=== PATIENT | female | born 1970 | race Two or more races ===

== ENCOUNTER → 2019-11-18 17:48 | Outpatient (CLI) | payer BC, SELFPAY ==
--- NOTE | ~2019-11-18 | MM_ITS ---
EXAMINATION: MM screening [facility] BI w kiah HISTORY: Screening TECHNIQUE: Craniocaudal and mediolateral oblique 3-D tomosynthesis images were obtained and synthetic 2-D images were generated. CAD analysis was submitted and interpreted. COMPARISON: Comparison to multiple prior studies sequentially, with oldest reviewed study dated 05/2018. BREAST PARENCHYMAL COMPOSITION: The breasts are heterogenously dense, which may obscure small masses. FINDINGS: There are benign bilateral skin calcifications. There is no evidence of suspicious mass, ca lcification, or architectural distortion to suggest malignancy in either breast. There has been no winn spicious interval change. IMPRESSION: 1. No mammographic evidence of malignancy. 2. Recommend routine screening mammography in one year. BI-RADS Category 2: Benign finding(s). Reviewed, dictated and finalized at location A.
== END ==
PROVIDERS: PCP Internal Medicine; Visit Provider Nurse Practitioner
DX: Z12.31 Encounter for screening mammogram for malignant neoplasm of breast (principal)
CPT/HCPCS: 77063; 77067

== ENCOUNTER → 2020-03-31 08:42 | Outpatient (CLI) | payer BC, SELFPAY ==
--- NOTE | ~2020-03-31 | MMUS_ITS ---
EXAMINATION: MM diagnostic maria guadalupe LT w kiah, US breast LT complete HISTORY: Follow-up left breast asymmetries TECHNIQUE: Additional 3-D tomosynthesis images of the left breast were performed and synthetic 2-D im ages were generated. CAD analysis was submitted and interpreted. High resolution left breast ultrasou nd was performed. COMPARISON: Comparison to multiple prior studies sequentially, with oldest reviewed study dated 08/28. BREAST PARENCHYMAL COMPOSITION: The breasts are heterogenously dense, which may obscure small masses. FINDINGS: MAMMOGRAPHIC FINDINGS: There are multiple small masses in the upper outer quadrant of the left breast, largest measuring 1.4 cm. There are no suspicious calcifications. There are benign skin calcifications. No architectural d istortion. ULTRASOUND: Left breast ultrasound: There multiple cysts of the left breast, largest at 1:00, 4 cm from the nippl e measuring 1.4 cm corresponding to the mass seen on mammography. At 4:00, 4 cm from the nipple, ther e is a spongiform 6 mm mass, likely a cluster of microcysts without significant posterior features or internal vascularity. IMPRESSION: 1. Probable benign cluster of microcysts of the left breast at 4:00, 4 cm from the nipple. Multiple a dditional simple cysts are identified corresponding to the mammographic findings. 2. Recommend 6 month follow-up diagnostic left mammogram and ultrasound BI-RADS category 3, probably benign findings. Reviewed, dictated and finalized at location A. CH SHOVEL OPERATOR IMPRESSION: 1. Probable benign cluster of microcysts of the left breast at 4:00, 4 cm from the nipple. Multiple additional simple cysts are identified corresponding to th e mammographic findings. 2. Recommend 6 month follow-up diagnostic left mammogram and ultrasound BI-RADS category 3, probably benign findings.
== END ==
PROVIDERS: Visit Provider Obstetrics & Gynecology Gynecology
DX: N64.4 Mastodynia (principal); N60.02 Solitary cyst of left breast; N63.23 Unspecified lump in the left breast, lower outer quadrant
CPT/HCPCS: 76641; 77061; 77065; G0279

== ENCOUNTER → 2020-09-21 16:44 | Outpatient (CLI) | payer BC, SELFPAY ==
--- NOTE | ~2020-09-21 | XR_ITS ---
EXAMINATION: XR chest 2V DATE: 09/21/2020 18:00 INDICATION: Cough TECHNIQUE: frontal and lateral views of the chest were obtained. COMPARISON: Chest radiograph dated 01/27/2018 FINDINGS: The lungs remain clear with no focal airspace opacities, pulmonary edema, pleural effusion or pneumot horax. The cardiomediastinal silhouette is normal. Visualized bones and soft tissues are unremarkable . IMPRESSION: 1. Normal chest radiograph. Reviewed, dictated and finalized at location A. IMPRESSION: 1. Normal chest radiograph.
== END ==
PROVIDERS: PCP Internal Medicine; Visit Provider Internal Medicine
DX: R05 Cough (principal)
CPT/HCPCS: 71046

== ENCOUNTER → 2021-05-10 15:12 | Outpatient (CLI) | payer BC, SELFPAY ==
--- NOTE | ~2021-05-10 | MM_ITS ---
EXAMINATION: MM screening [facility] BI w kiah HISTORY: Screening mammogram TECHNIQUE: Craniocaudal and mediolateral oblique 3-D tomosynthesis images were obtained and synthetic 2-D images were generated. CAD analysis was submitted and interpreted. COMPARISON: 03/31/2020, 11/18/2019, 07/17/2018 BREAST PARENCHYMAL COMPOSITION: The breasts are heterogeneously dense, which may obscure small masses . FINDINGS: Scattered benign-appearing calcifications are present. There is no suspicious mass, calcifi cation, or architectural distortion to suggest malignancy in either breast. There has been no suspici ous interval change. IMPRESSION: 1. No mammographic evidence of malignancy. 2. Recommend routine screening mammography in one year. BI-RADS Category 2: Benign finding(s). Reviewed, dictated and finalized at location A.
== END ==
PROVIDERS: Visit Provider Obstetrics & Gynecology Gynecology
DX: Z12.31 Encounter for screening mammogram for malignant neoplasm of breast (principal)
CPT/HCPCS: 77063; 77067

== ENCOUNTER → 2021-11-05 14:13 | Outpatient (CLI) | payer BC, SELFPAY ==
--- NOTE | ~2021-11-05 | MMUS_ITS ---
EXAMINATION: MM diagnostic maria guadalupe LT w kiah, US breast LT limited HISTORY: Pain in the lower outer quadrant of the left breast TECHNIQUE: Craniocaudal, mediolateral, and mediolateral oblique 3-D tomosynthesis images of the left breast were performed and synthetic 2-D images were generated. CAD analysis was submitted and interpr eted. High resolution limited left breast ultrasound was performed. COMPARISON: 05/10/2021, 03/31/2020, 11/18/2019 BREAST PARENCHYMAL COMPOSITION: The breasts are heterogeneously dense, which may obscure small masses . FINDINGS: MAMMOGRAPHIC FINDINGS: There is no suspicious mass, calcification, or architectural distortion to suggest malignancy. There has been no suspicious interval change. No mammographic correlate is identified for the patient's re ported left breast pain. A stable asymmetry is noted in the anterior aspect of the breast on the cran iocaudal view ULTRASOUND: There is a 1.3 cm cyst at the 3:00 location 3.5 cm from the nipple. A 6 mm cyst is present at the 3:0 0 location near the nipple. There is a stable 7 mm cluster of microcysts at the 4:00 location 3 cm fr om the nipple. IMPRESSION: 1. No specific mammographic or sonographic correlate is identified for the patient's reported left br east pain. Further evaluation at this time should be based on clinical assessment. Continued follow-u p physical examination is recommended. 2. Routine screening mammography is recommended, due in six months. BI-RADS Category 2: Benign finding(s). Reviewed, dictated and finalized at location A. IMPRESSION: 1. No specific mammographic or sonographic correlate is identified for the rolo ent's reported left breast pain. Further evaluation at this time should be base d on clinical assessment. Continued follow-up physical examination is recommend ed. 2. Routine screening mammography is recommended, due in six months. BI-RADS Category 2: Benign finding(s).
== END ==
PROVIDERS: PCP Internal Medicine; Visit Provider Nurse Practitioner
DX: N64.4 Mastodynia (principal)
CPT/HCPCS: 76642; 77061; 77065; G0279

== ENCOUNTER → 2022-12-08 15:00 | Outpatient (CLI) | payer BC, SELFPAY ==
--- NOTE | ~2022-12-08 | MM_ITS ---
EXAMINATION: MM screening maria guadalupe BI w kiah HISTORY: Screening mammogram TECHNIQUE: Craniocaudal and mediolateral oblique 3-D tomosynthesis images were obtained and synthetic 2-D images were generated. CAD analysis was submitted and interpreted. COMPARISON: 11/05/2021 diagnostic left mammogram and limited left breast ultrasound examination 05/10/2021 bilateral screening mammogram 03/31/2020 diagnostic left mammogram and complete left breast ultrasound examination 11/18/2019, 07/17/2018 bilateral screening mammogram examinations BREAST PARENCHYMAL COMPOSITION: The breasts are heterogeneously dense, which may obscure small masses . FINDINGS: Scattered bilateral benign calcifications. There is no evidence of suspicious mass, calcifi cation, or architectural distortion to suggest malignancy in either breast. There has been no suspici ous interval change. IMPRESSION: 1. No mammographic evidence of malignancy; no significant change since 07/17/2018 2. Recommend routine screening mammography in one year. BI-RADS Category 2: Benign finding(s). Reviewed, dictated and finalized at location A.
== END ==
PROVIDERS: PCP Obstetrics & Gynecology Gynecology; Visit Provider Nurse Practitioner
DX: Z12.31 Encounter for screening mammogram for malignant neoplasm of breast (principal)
CPT/HCPCS: 77063; 77067

== ENCOUNTER 2023-11-06 01:05 | Day surgery (SDC) | payer OTHER, SELFPAY ==
[2023-10-13 15:37] VITALS: BMI 31.1
[2023-11-06 09:45] VITALS: BP 152/85; PULSE 78; RESP 18; TEMP 36.1; O2SAT 99; BMI 30.8
[2023-11-06] MEDS: LACTATED RINGERS 1,000 ML 150 ML IV CONT (09:55)
--- NOTE | 2023-11-06 10:49 | WPDANESEPPF ---
Anes - Initial Pre Proc Eval Procedure: Operation Date: 11/06/23 11:00 Proposed Procedures p Colonoscopy - Kennedy Chavez MD Date/Time: 11/06/23 10:49 Surgeon: Kennedy Chavez MD Pre Op Diagnosis: change in bowel habit Patient Data Age: 52 Gender: F Height: 1.57 m Weight: 76.4 kg Last Vital Signs Temp 97 F L 11/06/23 09:45 Pulse 78 11/06/23 09:45 Resp 18 11/06/23 09:45 BP 152/85 H 11/06/23 09:45 Pulse Ox 99 11/06/23 09:45 O2 Del Method Room Air 11/06/23 09:45 Allergies Allergy/AdvReac Type Severity Reaction Status Date / Time No Known Allergies Allergy Mild Verified 11/06/23 09:43 Home Medications Medication Instructions Recorded Confirmed Type fluticasone propionate 50 2 spray intranasal BID PRN Allergy 10/13/23 11/06/23 History mcg/actuation nasal Symptoms spray,suspension (Flonase Allergy Relief) losartan 50 mg tablet 50 mg PO DAILY 10/13/23 11/06/23 History sennosides 8.6 mg tablet (Senokot) 8.6 mg PO 2XW PRN Constipation 10/13/23 11/06/23 History Patient hx anesthesia problems: none Family hx anesthesia problems: none Results Review: All pre-operative results and documents have been reviewed as part of the pre-operative evaluation. [facility] [place] Family History Family History (Updated 03/12/20 @ 09:23 by Cherelle Boyer CMA) Father Alcoh dep NEC/NOS, unspec Asthma Cancer Diabetes mellitus Heart disease Depression Hypertension Thyroid activity decreased Mother Asthma Cancer Diabetes mellitus Hypertension Thyroid activity decreased Sibling Asthma Cancer Depression Diabetes mellitus Heart disease Hypertension Thyroid activity decreased Unknown Asthma Cancer Diabetes mellitus Depression Thyroid activity decreased Heart disease Hypertension Grandparent Asthma Cancer Heart disease Hypertension Depression Thyroid activity decreased Social History Social History (Updated 03/12/20 @ 09:24 by Cherelle Boyer CMA) Smoking status: Never smoker Second hand tobacco smoke exposure: No Alcohol intake: never Substance use: never Substance use type: does not use Living arrangements: with family Spiritual care concerns: No Anes - Eval Final PreProcedure Day of Procedure 11/06/23 10:49 Patient weight: obese Heart: regular rate and rhythm Lungs: clear to auscultation Airway: Mallampati scale class II Neurological: alert and oriented Last oral intake: >/= 8 hours ASA classification: II Emergent: no Anesthetic plan: proceed Anesthesia type and monitoring: general GIVS and standard monitoring Results Review: All pre-operative results and documents have been reviewed as part of the pre-operative evaluation. Informed Consent: The patient's anesthetic plan and its attendant risks and benefits were discussed with the patient/family/POA. Questions were solicited and answers provided to the satisfaction of the patient/family/POA.
--- NOTE | 2023-11-06 10:59 | PM.HPGS ---
History of Present Illness History of Present Illness Consent: Risks, benefits, and alternatives have been discussed and questions answered. Patient agrees to proceed with procedure. Chief complaint: change in bowel habit Narrative: Tereza Childs is a 52 year old female here for colonoscopy, last one 10 years ago, also had constipation Review of Systems Review of Systems: All systems reviewed & are unremarkable except as noted in HPI and below PMFSH Past Medical History Medical History (Updated 11/06/23 @ 11:02 by Kenneyd Chavez MD) Colon cancer screening Family History Family History (Updated 03/12/20 @ 09:23 by Cherelle Boyer CMA) Father Alcoh dep NEC/NOS, unspec Asthma Cancer Diabetes mellitus Heart disease Depression Hypertension Thyroid activity decreased Mother Asthma Cancer Diabetes mellitus Hypertension Thyroid activity decreased Sibling Asthma Cancer Depression Diabetes mellitus Heart disease Hypertension Thyroid activity decreased Unknown Asthma Cancer Diabetes mellitus Depression Thyroid activity decreased Heart disease Hypertension Grandparent Asthma Cancer Heart disease Hypertension Depression Thyroid activity decreased Social History Social History (Updated 03/12/20 @ 09:24 by Cherelle Boyer CMA) Smoking status: Never smoker Second hand tobacco smoke exposure: No Alcohol intake: never Substance use: never Substance use type: does not use Living arrangements: with family Spiritual care concerns: No Meds Home Medications and Allergies Home Medications Medication Instructions Recorded Confirmed Type fluticasone propionate 50 2 spray intranasal BID PRN Allergy 10/13/23 11/06/23 History mcg/actuation nasal Symptoms spray,suspension (Flonase Allergy Relief) losartan 50 mg tablet 50 mg PO DAILY 10/13/23 11/06/23 History sennosides 8.6 mg tablet (Senokot) 8.6 mg PO 2XW PRN Constipation 10/13/23 11/06/23 History Allergies Allergy/AdvReac Type Severity Reaction Status Date / Time No Known Allergies Allergy Mild Verified 11/06/23 09:43 Vital Signs Vital Signs - 24 hr 11/06/23 09:45 Temperature 97 F L Pulse Rate 78 Respiratory Rate 18 Blood Pressure 152/85 H Pulse Oximetry 99 Oxygen Delivery Room Air Exam Const: General: comfortable and no acute distress HENMT: Face/Nose/Sinus: Normal nares present Eyes: General: appearance normal, both eyes and all related structures Neck: Neck: no JVD Resp: Auscultation: clear to auscultation bilaterally Cardio: Rate: regular rate Rhythm: regular rhythm GI: Inspection: non-distended GI Palp: Yes Soft to palpation Skin: General skin exam: normal color Neuro: General: gait normal Speech: normal speech Extrem: General: normal to inspection Psych: Mental Status: mental status grossly normal Assessment and Plan Assessment and plan (1) Colon cancer screening: Code(s): Z12.11 - Encounter for screening for malignant neoplasm of colon Status: Acute Assessment and Plan: colonoscopy
[2023-11-06 11:14] VITALS: BP 115/59; PULSE 82; RESP 16; O2SAT 100
[2023-11-06 11:24] VITALS: BP 121/65; PULSE 75; RESP 20; O2SAT 100
[2023-11-06 11:34] VITALS: BP 150/77; PULSE 74; RESP 18; O2SAT 100
== END 2023-11-06 11:40 | disposition home or self-care (01) ==
PROVIDERS: PCP Internal Medicine; Referring Provider Internal Medicine; Visit Provider Internal Medicine Gastroenterology
PROC: 0DJD8ZZ Inspection of Lower Intestinal Tract, Via Natural or Artificial Opening Endoscopic (ICD-10-PCS; CPT 45378; principal; 2023-11-06 11:00)
DX: Z12.11 Encounter for screening for malignant neoplasm of colon (principal); E66.9 Obesity, unspecified; Z68.30 Body mass index [BMI] 30.0-30.9, adult; Z80.9 Family history of malignant neoplasm, unspecified; Z82.49 Family history of ischemic heart disease and other diseases of the circulatory system
CPT/HCPCS: 45378; J2704; J7120

== ENCOUNTER 2024-02-08 16:49 | Outpatient (CLI) | payer OTHER, SELFPAY ==
--- NOTE | ~2024-02-08 | XR_ITS ---
EXAMINATION: XR chest 2V Exam Date/Time: 02/08/2024 17:00 GRAPHIC DESIGN INTERN HISTORY: Wheezing AND SHORTNESS OF BREATH Comparison: 09/21/2020. RESULT: Lines, tubes, and devices: None. Lungs and pleura: Clear. Cardiomediastinal silhouette: Stable. Other: No acute osseous or upper abdominal finding. IMPRESSION: No acute cardiopulmonary process. Reviewed, dictated and finalized at location K. HIC DESIGN INTERN
== END 2024-02-08 16:50 | disposition home or self-care (01) ==
PROVIDERS: PCP Internal Medicine; Visit Provider Internal Medicine
DX: R06.2 Wheezing (principal); R06.02 Shortness of breath
CPT/HCPCS: 71046

== ENCOUNTER 2024-10-24 09:21 | Outpatient (CLI) | payer OTHER, SELFPAY ==
--- NOTE | ~2024-10-24 | XR_ITS ---
EXAMINATION: XR knee LT 3V, 10/24/2024 9:26 CDT HISTORY: L knee pain COMPARISON: No comparisons available. Findings: No acute fracture or malalignment. No significant degenerative changes. Soft tissues unremarkable. Impression: No acute fracture or malalignment. Reviewed, dictated and finalized at location A. Impression: No acute fracture or malalignment.
== END 2024-10-24 09:22 | disposition home or self-care (01) ==
LOC: MICIMG 09:22
PROVIDERS: PCP Internal Medicine; Visit Provider Internal Medicine
DX: M25.562 Pain in left knee (principal)
CPT/HCPCS: 73562